=== PATIENT | female | born 1985 | race Caucasian/White ===

== ENCOUNTER 2021-10-14 08:06 | Outpatient (CLI) | payer BC | END 2021-10-14 08:07 | disposition home or self-care (01) | LOC: CTENTCT 08:06 | PROVIDERS: ATTEND Specialist | DX: G50.1 Atypical facial pain (principal) | CPT/HCPCS: 70486 ==

== ENCOUNTER 2022-09-10 13:41 | Outpatient (CLI) | payer BC | END 2022-09-10 13:42 | disposition home or self-care (01) | LOC: SCSRAD 13:41 | PROVIDERS: ATTEND Nurse Practitioner Family | DX: S99.911D Unspecified injury of right ankle, subsequent encounter (principal) ==

== ENCOUNTER 2022-09-16 14:23 | Outpatient (CLI) | payer BC | END 2022-09-16 14:24 | disposition home or self-care (01) | LOC: BICMAMMO 14:23 | PROVIDERS: ATTEND Nurse Practitioner Family | DX: N63.23 Unspecified lump in the left breast, lower outer quadrant (principal) | CPT/HCPCS: 77066; G0279 ==